=== PATIENT | female | born 1985 | race Caucasian/White ===

== ENCOUNTER 2019-05-22 12:59 | Emergency (ER) | payer BC, OTHER ==
[~2019-05-22] VITALS: Ht 165.1 cm; Wt 63.5 kg
--- NOTE | 2019-05-22 13:40 | PHYS DOC ---
Past Medical History Past Medical History: No Pertinent History Past Surgical History: Additional Past Surgical Histo: 1 WEEK AGO Alcohol Use: Occasionally Drug Use: None Adult General Chief Complaint Chief Complaint: HEADACHE HPI HPI Patient is a 33 year old female who presents with spinal headache that's been ongoing since she delivered on May 14 at [facility]. The patient had epidural that progressed to . She states she's had a headache ever since. Denies any symptoms. She's been taking Percocet and ibuprofen for pain. Denies any medical history. Review of Systems Review of Systems Constitutional: Denies fever or chills [] Eyes: Denies change in visual acuity, redness, or eye pain [] HENT: Denies nasal congestion or sore throat [] Respiratory: Denies cough or shortness of breath [] Cardiovascular: No additional information not addressed in HPI [] GI: Denies abdominal pain, nausea, vomiting, bloody stools or diarrhea [] : Denies dysuria or hematuria [] Musculoskeletal: Denies back pain or joint pain [] Integument: Denies rash or skin lesions [] Neurologic: Reports headache, denies focal weakness or sensory changes [] Endocrine: Denies polyuria or polydipsia [] Complete systems were reviewed and found to be within normal limits, except as documented in this note. Allergies Allergies Allergies Coded Allergies Type Severity Reaction Last Updated Verified No Known Drug Allergies 05/22/19 No Physical Exam Physical Exam Constitutional: Well developed, well nourished, no acute distress, non-toxic appearance. [] HENT: Normocephalic, atraumatic, bilateral external ears normal, oropharynx moist, no oral exudates, nose normal. [] Eyes: PERRLA, EOMI, conjunctiva normal, no discharge. [] Neck: Normal range of motion, no tenderness, supple, no stridor. [] Cardiovascular:Heart rate regular rhythm, no murmur [] Lungs & Thorax: Bilateral breath sounds clear to auscultation [] Skin: Warm, dry, no erythema, no rash. [] Neurologic: Alert and oriented X 3, normal motor function, normal sensory function, no focal deficits noted. [] Psychologic: Affect normal, judgement normal, mood normal. [] Current Patient Data Vital Signs Vital Signs Date Time Temp Pulse Resp B/P (MAP) Pulse Ox O2 Delivery O2 Flow Rate FiO2 05/22/19 14:23 76 16 99 05/22/19 13:12 98.0 167/77 (107) Room Air 98.0 EKG EKG [] Radiology/Procedures Radiology/Procedures [] Course & Med Decision Making Course & Med Decision Making Pertinent Labs and Imaging studies reviewed. (See chart for details) Discussed with Dr. Domingo from Anesthesia who will do a blood patch in ER. Blood patch was performed and patient laid on her back from 1.5 hours. Will d/c home. Dragon Disclaimer Dragon Disclaimer This electronic medical record was generated, in whole or in part, using a voice recognition dictation system. Departure Departure Impression: Primary Impression: Spinal headache Disposition: HOME, SELF-CARE Condition: STABLE Referrals: RAVIN TUCKER MD (PCP) Patient Instructions: Epidural Blood Patching in Spinal Headache Additional Instructions: Thank you for visiting [facility]. We appreciate you trusting us with your care. If any additional problems come up don't hesitate to return to visit us. Please follow up with your primary care provider so they can plan additional care if needed and know about the problem that you had. If symptoms worsen come back to the Emergency Department. Any concerning symptoms that start such as chest pain, shortness of air, weakness or numbness on one side of the body, running high fevers or any other concerning symptoms return to the ER. ALFONSO SYLVESTER APRN May 22, 2019 13:40
--- NOTE | 2019-05-22 13:57 | PDOC ---
Date and Time >1 week headache after epidural anesthetic at another facility. Diffuse headache, worse with standing or sitting, near resolution when supine. Denies visual changes, nausea, nuchal rigidity,fever. Options discussed with patient. It is unlikely given the duration of her headache that it will resolve without intervention. Patient informed that the success rate for initial epidural blood patch is around 60% for complete resolution. Risks of bleeding, infection, no improvement or worsening of headache as well as temporary back and or leg pain discussed with patient and she wishes to proceed. Sitting, betadine prep and sterile drapes to Left AC and lumbar spine. 1% lidocaine local, Sterile gloves, cap, mask 18T loss of resistance to saline at L4,5 with ease.No CSF or blood noted in epidural needle. 20ml blood drawn from Left AC and injected into epidural space. GOMES improved during injection. Patient developed pressure in back and legs at conclusion of injection Instructed to lie supine for 1 hour in ED. After discharge instructed not to strain and to remain supine as much as possible until tomorrow morning. LAST VITALS Vital Signs Date Time Temp Pulse Resp B/P (MAP) Pulse Ox O2 Delivery O2 Flow Rate FiO2 05/22/19 13:12 98.0 94 16 167/77 (107) 99 Room Air 98.0 SHAYY CORREA MD May 22, 2019 13:57
[2019-05-22 14:23] VITALS: BP 148/82
== END 2019-05-22 15:03 | disposition home or self-care (01) ==
LOC: ER 12:59
DX: O89.4 Spinal and epidural anesthesia-induced headache during the puerperium (principal); Z98.890 Other specified postprocedural states
CPT/HCPCS: 62273; 99284